=== PATIENT | male | born 1995 | race African-American/Black ===

== ENCOUNTER 2017-07-10 19:46 | Emergency (ER) | payer SELFPAY ==
[~2017-07-10] VITALS: Ht 172.7 cm; Wt 86.0 kg
[2017-07-11] MEDS ORDERED: METHYLPREDNISOLONE SOD SUCC 125 MG/2 ML VIAL IV ONE (04:15)
[2017-07-11 04:20] VITALS: BP 138/87
[2017-07-11] MEDS ORDERED: METHYLPREDNISOLONE SOD SUCC 125 MG/2 ML VIAL IM ONE (05:15)
== END 2017-07-11 05:40 | disposition home or self-care (01) ==
LOC: ER 21:55
DX: L20.9 Atopic dermatitis, unspecified (principal)
CPT/HCPCS: 96372; 99283; J2930